=== PATIENT | female | born 1965 | race Caucasian/White ===

== ENCOUNTER 2019-04-26 05:35 | Day surgery (SDC) | payer BC ==
[~2019-04-26 05:35] MED LIST: Buffered Lidocaine 1% SYRIN* 1 ML/SYRINGE INTRADERM ONE
[2019-04-26] MEDS ORDERED: Famotidine IV* 10 MG/ML 2 ML (20 mg) IV ONE (06:00)
[2019-04-26] MEDS ORDERED: Lactated Ringers 1000 ML Bag* 1,000 ML IV SCH (06:00)
[2019-04-26] MEDS ORDERED: Dexamethasone IV* 4 MG/ML 1 ML (4 MG) IV SLOW PU ONE (06:00)
[2019-04-26] MEDS ORDERED: Famotidine IV* 10 MG/ML 2 ML (20 mg) ONE (06:18)
[2019-04-26] MEDS ORDERED: ceFAZolin 2 GM in NS PREMIX(*) 2 GM/100 ML BAG IVPB ONE (06:18)
[2019-04-26] MEDS ORDERED: Buffered Lidocaine 1% SYRIN* 1 ML/SYRINGE INTRADERM ONE (06:18)
[2019-04-26] MEDS ORDERED: Dexamethasone IV* 4 MG/ML 1 ML (4 MG) ONE (06:18)
[2019-04-26] MEDS ORDERED: Lidocaine 1% w EPI 1:200,000* SDV 30 ML VIAL ONE (07:10)
[2019-04-26] MEDS ORDERED: Ropivacaine 0.2% * 2 MG/ML VIAL ONE (07:11)
[2019-04-26] MEDS ORDERED: EPHEDrine (Pressors)* 50 MG/ML VIAL ONE (07:13)
[2019-04-26] MEDS ORDERED: Lidocaine 2% PF * 5 ML VIAL ONE (07:14)
[2019-04-26] MEDS ORDERED: Ketorolac INJ* 30 MG/ML 1 ML VIAL ONE (07:14)
[2019-04-26] MEDS ORDERED: Ondansetron INJ* 2 MG/ML VIAL ONE (07:14)
[2019-04-26] MEDS ORDERED: Propofol* 10 MG/ML 20 ML BTL ONE (07:14)
[2019-04-26] MEDS ORDERED: Midazolam* 1 MG/ML 5 ML VIAL (5 MG) ONE (07:15)
[2019-04-26] MEDS ORDERED: fentaNYL* 50 MCG/ML 5 ML VIAL (250 MCG VIAL) ONE (07:16)
[2019-04-26] MEDS ORDERED: Ondansetron INJ* 2 MG/ML VIAL IV PRN (07:50)
[2019-04-26] MEDS ORDERED: oxyCODONE/Acetamin 5/325 MG* TAB PO PRN (07:50)
[2019-04-26] MEDS ORDERED: fentaNYL* 50 MCG/ML 2 ML VIAL (100 MCG VIAL) IV PRN (07:50)
[2019-04-26] MEDS ORDERED: Scopolamine 1.5 mg* PATCH TRANSDERM PRN (07:50)
[2019-04-26] MEDS ORDERED: DiMENhydriNATE IV* 50 MG/ML VIAL IV PUSH PRN (07:50)
[2019-04-26] MEDS ORDERED: Naloxone* 0.4 MG/ML 1 ML VIAL IV PRN (07:50)
[2019-04-26 09:36] VITALS: BP 130/81
--- NOTE | 2019-04-26 14:02 | OP ---
CC: PCP, Dr. Nova * DATE OF OPERATION: 04/26/19 - [facility] DATE OF : 69 ATTENDING SURGEON: Jaclyn Child MD. CHRISTIAN EDUCATION DIRECTOR: None available. PRE-OP DIAGNOSIS: Medial meniscus tear. POST-OP DIAGNOSES: Medial and lateral meniscus tears with some mild chondrosis of the patella as well as the medial compartment. OPERATIVE PROCEDURE: Left knee arthroscopy with partial medial and partial lateral meniscectomy. COMPLICATIONS: None. ESTIMATED BLOOD LOSS: Minimal. INDICATIONS: Sita Kirk is a 53-year-old female who presents with meniscal catching and locking and mechanical symptoms. She is diagnosed with a medial meniscus tear. The risks and benefits of surgery were discussed and included but not limited to bleeding, infection, damage to nerves; vessels; surrounding structures, wound nonhealing, persistent pain, need for further surgery, scarring, stiffness, incomplete relief of symptoms, and risks of anesthesia. DESCRIPTION OF PROCEDURE: The patient was greeted in the preoperative area by the attending surgeon. Correct extremity was marked. Consent was confirmed. The patient was brought back to the operating table. She was placed in the supine position on the operating room table and then underwent general anesthesia with LMA intubation, after which she was appropriately positioned on the operating room table in the lateral post position. An unsterile tourniquet was placed high on the proximal leg. The left leg was then prepped and draped in the usual sterile fashion beginning with chlorhexidine soap, scrub, and alcohol wipe and a final prep with ChloraPrep. After appropriate surgical pause indicating site, side, procedure, and administration of antibiotics, the knee was intraarticularly injected with 1% lidocaine with epi. The anterolateral portal was made sharply with an 11 blade. The scope was introduced into the joint and the joint was examined. There was abundant synovitis present anteriorly as well as a small plica. The medial compartment was examined. There were some areas of grade 2 chondrosis of the medial femoral condyle. The medial plateau had grade 0 to 1 changes. There was evidence of a horizontal meniscus tear with some unstable flaps and a small unstable portion. The biters and pablo were used to debride back the unstable flaps. Once this was completed, attention was directed to the chondroplasty. A gentle chondroplasty was done in the medial femoral condyle to remove any unstable flaps. The lateral compartment was examined in a figure- of-four position. There was some unstable fraying of the root of the meniscus as well as the body, which was debrided back using a shaver. The remainder of the meniscus was intact. There were grade 0 to 1 changes of the lateral femoral condyle and lateral plateau. The patellofemoral joint was examined. The undersurface had some grade 2 changes, which were debrided back using a shaver. The synovitis that was present medially and laterally was then removed using the pablo. Final images were obtained. The knee was thoroughly lavaged and removed any loose debris. The wounds were copiously irrigated with sterile saline. The portals were closed with 3-0 nylon in an interrupted fashion and sterile dressings. The wound was superficially injected intraarticularly with 0.2% ropivacaine. Sterile dressings were applied and a Cryo/Cuff. She was awoken from anesthesia and transferred to PACU in stable condition. POSTOPERATIVE PLAN: She will be weightbearing as tolerated with crutches for the first 3 to 5 days. Discharged on pain medications. DVT prophylaxis was considered, but deferred due to no pervious personal or family history. I will see the patient back in 10 to 14 days. [id number]/[facility] #: [id number] FELIX
== END 2019-04-26 09:40 | disposition home or self-care (01) ==
LOC: OR 05:35
PROVIDERS: ATTEND Orthopaedic Surgery
DX: M23.232 Derangement of other medial meniscus due to old tear or injury, left knee (principal); M23.262 Derangement of other lateral meniscus due to old tear or injury, left knee; G47.33 Obstructive sleep apnea (adult) (pediatric); E66.9 Obesity, unspecified
CPT/HCPCS: J0690; J1100; J1885; J2001; J2250; J2405; J2704; J2795; J3010